=== PATIENT | male | born 1975 | race Two or more races ===

== ENCOUNTER → 2019-06-07 21:26 | Outpatient (CLI) | payer BC, SELFPAY ==
[2018-07-05 19:23] VITALS: BMI 27.1
[2019-06-07 21:37] LABS: Absolute Lymphocyte Count 2.43 X10^3/uL (0.83-4.51); Absolute Neutrophil Count 3.4 X10^3/uL (2.0-7.7); Basophil# 0.05 X10^3/uL; Basophil% 0.7 % (0-1); Eosinophil# 0.12 X10^3/uL; Eosinophils% 1.8 % (0-5); Hematocrit 41.5 % (40-54); Hemoglobin 13.6 g/dL (13.0-16.5); Lymphocyte # 2.43 X10^3/ul (4.0); Lymphocyte % 36.4 % (19-41); Mean Corp Hgb Conc 32.8 g/dL (32-36); Mean Corpuscular Hgb 25.6 pg (27.0-32.0); Mean Platelet Vol. 9.2 fl (6.2-12.0); Monocyte# 0.66 X10^3/uL; Monocyte% 9.9 % (0-10); NRBC Flagged by Analyzer 0 % (0-5); Neutrophil # 3.39 X10^3/uL (2.7-7.7); Neutrophil % 50.9 % (47-70); Platelet Count 317 K/mm3 (150-450); RBC Distribution Width CV 13.1 % (11.6-14.6); RBC Distribution Width SD 36.5 fl (35.1-43.9); Red Blood Count 5.32 M/mm3 (4.6-6.2); White Blood Count 6.7 K/mm3 (4.4-11.0)
[2019-06-07 21:49] LABS: ALB/GLOB Ratio 0.9 RATIO (0.9-2.4); AST(SGOT) 23 U/L (15-37); Alanine Aminotransfer ALT/SGPT 41 U/L (16-61); Alkaline Phosphatase 73 U/L (45-117); Anion Gap 6 (5-15); BUN 16 mg/dL (7-18); BUN/Creat Ratio 19.5 RATIO (10-20); Calcium,Total 8.8 mg/dL (8.5-10.1); Chloride 103 mmol/L (98-107); Cholesterol 247 mg/dL (200); Creatinine, Serum 0.82 mg/dL (0.70-1.30); EST Glomerular Filtration Rate 107 mL/min (>60); Est Glom Filt Rate - Afr Amer 130 mL/min (>60); Globulin 4.3 g/dL (2.2-4.2); Glucose 85 mg/dL (74-106); High Density Lipoprotein 51 mg/dL; Potassium 3.8 mmol/L (3.5-5.1); Protein, Total 8.3 g/dL (6.4-8.2); Sodium Level 139 mmol/L (136-145); Triglycerides 220 mg/dL; Very Low Density Lipoprotein 44 mg/dL (5-40)
== END ==
PROVIDERS: Referring Provider Nurse Practitioner; Visit Provider Nurse Practitioner
DX: Z00.00 Encounter for general adult medical examination without abnormal findings (principal)
CPT/HCPCS: 80053; 80061; 85025

== ENCOUNTER → 2023-09-27 | Outpatient (CLI) | payer BC, SELFPAY ==
[2023-09-27 22:04] LABS: Absolute Lymphocyte Count 2.69 X10^3/uL (0.83-4.51); Absolute Neutrophil Count 4.1 X10^3/uL (2.0-7.7); Basophil# 0.05 X10^3/uL; Basophil% 0.7 % (0-1); Eosinophil# 0.06 X10^3/uL; Eosinophils% 0.8 % (0-5); Hematocrit 43.5 % (40-54); Hemoglobin 13.8 g/dL (13.0-16.5); Lymphocyte # 2.69 X10^3/ul (0.83-4.51); Lymphocyte % 35.2 % (19-41); Mean Corp Hgb Conc 31.7 g/dL (32-36); Mean Corpuscular Hgb 24.9 pg (27.0-32.0); Mean Corpuscular Volume 78.5 fL (80-94); Mean Platelet Vol. 9.4 fl (6.2-12.0); Monocyte# 0.75 X10^3/uL; Monocyte% 9.8 % (0-10); NRBC Flagged by Analyzer 0 % (0-5); Neutrophil # 4.07 X10^3/uL (2.7-7.7); Neutrophil % 53.1 % (47-70); Platelet Count 317 K/mm3 (150-450); RBC Distribution Width CV 13.3 % (11.6-14.6); RBC Distribution Width SD 38.1 fl (35.1-43.9); Red Blood Count 5.54 M/mm3 (4.6-6.2); White Blood Count 7.7 K/mm3 (4.4-11.0)
[2023-09-27 22:19] LABS: ALB/GLOB Ratio 0.9 RATIO (0.9-2.4); AST(SGOT) 26 U/L (15-37); Alanine Aminotransfer ALT/SGPT 41 U/L (16-61); Albumin, Serum 3.8 g/dL (3.2-5.0); Alkaline Phosphatase 84 U/L (45-117); Anion Gap 6 (5-15); BUN 25 mg/dL (7-18); BUN/Creat Ratio 22.9 RATIO (10-20); Calcium,Total 8.7 mg/dL (8.5-10.1); Chloride 107 mmol/L (98-107); Cholesterol 259 mg/dL (200); Creatinine, Serum 1.09 mg/dL (0.70-1.30); EST Glomerular Filtration Rate 76 mL/min (>60); Est Glom Filt Rate - Afr Amer 92 mL/min (>60); Globulin 4.4 g/dL (2.2-4.2); Glucose 106 mg/dL (74-106); High Density Lipoprotein 53 mg/dL; PSA,Total - Annual Screen 0.71 ng/mL (0.00-4.00); Potassium 3.5 mmol/L (3.5-5.1); Protein, Total 8.2 g/dL (6.4-8.2); Sodium Level 140 mmol/L (136-145); Triglycerides 289 mg/dL; Very Low Density Lipoprotein 58 mg/dL (5-40)
== END | disposition home or self-care (01) ==
PROVIDERS: PCP Nurse Practitioner; Visit Provider Nurse Practitioner
DX: Z00.00 Encounter for general adult medical examination without abnormal findings (principal)
CPT/HCPCS: 80053; 80061; 83036; 84153; 85025; G0103

== ENCOUNTER → 2024-11-26 | Outpatient (CLI) | payer BC, SELFPAY ==
[2024-11-26 22:18] LABS: Absolute Lymphocyte Count 2.79 X10^3/uL (0.83-4.51); Basophil# 0.06 X10^3/uL; Basophil% 0.7 % (0-1); Eosinophil# 0.08 X10^3/uL; Eosinophils% 0.9 % (0-5); Hematocrit 41.4 % (40-54); Hemoglobin 13.7 g/dL (13.0-16.5); Lymphocyte # 2.79 X10^3/ul (0.83-4.51); Mean Corp Hgb Conc 33.1 g/dL (32-36); Mean Corpuscular Volume 75.5 fL (80-94); Mean Platelet Vol. 9.8 fl (6.2-12.0); Monocyte# 0.76 X10^3/uL; Monocyte% 8.7 % (0-10); NRBC Flagged by Analyzer 0 % (0-5); Neutrophil # 5.01 X10^3/uL (2.7-7.7); Neutrophil % 57.4 % (47-70); Platelet Count 331 K/mm3 (150-450); RBC Distribution Width CV 13.8 % (11.6-14.6); RBC Distribution Width SD 37.2 fl (35.1-43.9); Red Blood Count 5.48 M/mm3 (4.6-6.2); White Blood Count 8.7 K/mm3 (4.4-11.0)
[2024-11-26 22:50] LABS: ALB/GLOB Ratio 1.1 RATIO (0.9-2.4); AST(SGOT) 31 U/L (<=37); Alanine Aminotransfer ALT/SGPT 28 U/L (<=46); Albumin, Serum 4.6 g/dL (3.5-5.0); Alkaline Phosphatase 75 U/L (40-129); Anion Gap 11 (5-15); BUN 18 mg/dL (4-19); Calcium,Total 9.2 mg/dL (7.6-11.0); Carbon Dioxide 24.3 mmol/L (21.0-32.0); Chloride 99 mmol/L (98-108); Cholesterol 268 mg/dL (<=200); Creatinine, Serum 0.95 mg/dL (0.70-1.20); EST Glomerular Filtration Rate 97 (>60); Glucose 87 mg/dL (70-99); High Density Lipoprotein 48 mg/dL; Low Density Lipoprotein Calc. 191 mg/dL; Potassium 3.8 mmol/L (3.3-5.1); Protein, Total 8.6 g/dL (5.9-8.4); Sodium Level 134 mmol/L (133-145); Total Bilirubin 0.63 mg/dL (0.00-1.30); Triglycerides 145 mg/dL; Very Low Density Lipoprotein 29 mg/dL (5-40); cholesterol:hdl ratio screen 5.55
== END | disposition home or self-care (01) ==
PROVIDERS: PCP Nurse Practitioner; Referring Provider Nurse Practitioner; Visit Provider Nurse Practitioner
DX: Z00.00 Encounter for general adult medical examination without abnormal findings (principal)
CPT/HCPCS: 80053; 80061; 84153; 85025; G0103

== ENCOUNTER → 2025-06-24 | Outpatient (CLI) | payer BC, SELFPAY ==
--- OUTSIDE RECORDS SUMMARY | 2025-06-24 21:44 | XMS RPT_ITS | CCD ---
Author Organization [facility] Care Team Providers Care Manager Eligibility Name Role Phone Marvin GRINDER NEEDLE TIP, Roberta Referring Unavailable Marvin GRINDER NEEDLE TIP, Roberta Attending Unavailable Marvin GRINDER NEEDLE TIP, Roberta Primary Care Unavailable Medications Current Medications Medication Drug Class(es) Dates Sig (Normalized) Sig (Original) atorvastatin 20 mg oral tablet (1 source) HMG-CoA Reductase Inhibitor Start: 09-29-2023 take 20 mg by mouth once daily Atorvastatin Active 20 MG PO DAILY September 29, 2023 12:00am Completed/Discontinued Medications Medication Drug Class(es) Dates Sig (Normalized) Sig (Original) betamethasone 0.5 mg/ml topical cream (1 source) Corticosteroid Start: 05-29-2020 End: 09-27-2023 Betamethasone Dipropionate Discontinued 1 APPLIC TOPICAL TWICE A DAY May 28, 2020 11:00pm September 27, 2023 6:28pm triamcinolone acetonide 5 mg/ml topical cream (1 source) Corticosteroid Start: 07-05-2018 End: 05-29-2020 Triamcinolone Acetonide Discontinued 1 APPLIC TOPICAL THREE TIMES A DAY July 05, 2018 12:00am May 29, 2020 6:32pm Problems Problem Classification Problem Date Documented Da te Episodic/Chronic Unclassified (1 source) fx L forearm 02-24-2022 Results Test Name Value Interpretation Reference Range Facility PSA,Total - Annual Screenon 11-27-2024 PSA,TOT SCREEN 0.70 ng/mL Normal 0.02-4.00 [facility] Comment on above: Result Comment: This test was performed using the [employer] tPSA method. Measured values of a patient??sample can vary depending on the testing procedure used. PSA values determined on patient samples by different testing procedures cannot be used interchangeably. If there is a change in PSA assays while monitoring therapy, sequential testing should be performed to confirm baseline values. Performed By: #### L 500.4050, L500.4100, L100.0100, L501.9910 #### [facility] [address] [place], [address] CBC W/Diff, Automatedon 04-2 Absolute Lymph 2.79 X10 3/uL Normal 0.83-4.51 [facility] Comment on above: Performed By: #### L 500.4050, L500.4100, L100.0100, L501.9910 #### [facility] [address] [place], [address] Absolute Neut 5.0 X10 3/uL Normal 2.0-7.7 [facility] Comment on above: Performed By: #### L 500.4050, L500.4100, L100.0100, L501.9910 #### [facility] [address] [place], [address] Basophils/100 WBC (Bld) 0.7 % Normal 0-1 [facility] Comment on above: Performed By: #### L 500.4050, L500.4100, L100.0100, L501.9910 #### [facility] [address] [place], [address] Eosinophils/100 WBC (Bld) 0.9 % Normal 0-5 [facility] Comment on above: Performed By: #### L 500.4050, L500.4100, L100.0100, L501.9910 #### [facility] [address] [place], [address] Erythrocyte distribution width (RBC) [Ratio] 13.8 % Normal 11.6-14.6 [facility] Comment on above: Performed By: #### L 500.4050, L500.4100, L100.0100, L501.9910 #### [facility] [address] [place], [address] Hematocrit (Bld) [Volume fraction] 41.4 % Normal 40-54 [facility] Comment on above: Performed By: #### L 500.4050, L500.4100, L100.0100, L501.9910 #### [facility] [address] [place], [address] Hemoglobin (Bld) [Mass/Vol] 13.7 g/dL Normal 13.0-16.5 [facility] Comment on above: Performed By: #### L 500.4050, L500.4100, L100.0100, L501.9910 #### [facility] [address] [place], [address] IG% 0.300 Normal 0.0-0.9 [facility] Comment on above: Result Comment: IG% - Immature Granulocytes (promyelocytes, myelocytes and metamyelocytes) > 1% indicates that a LEFT SHIFT is Present. Performed By: #### L 500.4050, L500.4100, L100.0100, L501.9910 #### [facility] [address] [place], [address] Lymphocytes/100 WBC (Bld) 32.0 % Normal 19-41 [facility] Comment on above: Performed By: #### L 500.4050, L500.4100, L100.0100, L501.9910 #### [facility] [address] [place], [address] MCH (RBC) [Entitic mass] 25.0 pg Low 27.0-32.0 [facility] Comment on above: Performed By: #### L 500.4050, L500.4100, L100.0100, L501.9910 #### [facility] [address] [place], [address] MCHC (RBC) [Mass/Vol] 33.1 g/dL Normal 32-36 [facility] Comment on above: Performed By: #### L 500.4050, L500.4100, L100.0100, L501.9910 #### [facility] [address] [place], [address] MCV (RBC) [Entitic vol] 75.5 fL Low 80-94 [facility] Comment on above: Performed By: #### L 500.4050, L500.4100, L100.0100, L501.9910 #### [facility] [address] [place], [address] Monocytes/100 WBC (Bld) 8.7 % Normal 0-10 [facility] Comment on above: Performed By: #### L 500.4050, L500.4100, L100.0100, L501.9910 #### [facility] [address] [place], [address] Neutrophils/100 WBC (Bld) 57.4 % Normal 47-70 [facility] Comment on above: Performed By: #### L 500.4050, L500.4100, L100.0100, L501.9910 #### [facility] [address] [place], [address] Nucleated RBC (Bld) [#/Vol] 0 10*3/uL Normal 0-5 [facility] Comment on above: Performed By: #### L 500.4050, L500.4100, L100.0100, L501.9910 #### [facility] [address] [place], [address] Platelet mean volume (Bld) [Entitic vol] 9.8 fL Normal 6.2-12.0 [facility] Comment on above: Performed By: #### L 500.4050, L500.4100, L100.0100, L501.9910 #### [facility] [address] [place], [address] Platelets (Bld) [#/Vol] 331 10*3/uL Normal 150-450 [facility] Comment on above: Performed By: #### L 500.4050, L500.4100, L100.0100, L501.9910 #### [facility] [address] [place], [address] RBC (Bld) [#/Vol] 5.48 10*6/uL Normal 4.6-6.2 [facility] Comment on above: Performed By: #### L 500.4050, L500.4100, L100.0100, L501.9910 #### [facility] [address] [place], [address] RDW SD 37.2 fl Normal 35.1-43.9 [facility] Comment on above: Performed By: #### L 500.4050, L500.4100, L100.0100, L501.9910 #### [facility] [address] [place], [address] WBC (Bld) [#/Vol] 8.7 10*3/uL Normal 4.4-11.0 [facility] Comment on above: Performed By: #### L 500.4050, L500.4100, L100.0100, L501.9910 #### [facility] [address] [place], [address] Comprehensive Metabolic Prof [facility] 11-26-2024 Albumin [Mass/Vol] 4.6 g/dL Normal 3.5-5.0 [facility] Comment on above: Performed By: #### L 500.4050, L500.4100, L100.0100, L501.9910 #### [facility] [address] [place], [address] Albumin/Globulin [Mass ratio] 1.1 {ratio} Normal 0.9-2.4 [facility] Comment on above: Performed By: #### L 500.4050, L500.4100, L100.0100, L501.9910 #### [facility] [address] [place], [address] ALK PHOS 75 U/L Normal 40-129 [facility] Comment on above: Performed By: #### L 500.4050, L500.4100, L100.0100, L501.9910 #### [facility] [address] [place], [address] ALT [Catalytic activity/Vol] 28 U/L Normal <=46 [facility] Comment on above: Performed By: #### L 500.4050, L500.4100, L100.0100, L501.9910 #### [facility] [address] [place], [address] AST [Catalytic activity/Vol] 31 U/L Normal <=37 [facility] Comment on above: Performed By: #### L 500.4050, L500.4100, L100.0100, L501.9910 #### [facility] [address] [place], [address] Bilirubin [Mass/Vol] 0.63 mg/dL Normal 0.00-1.30 [facility] Comment on above: Performed By: #### L 500.4050, L500.4100, L100.0100, L501.9910 #### [facility] [address] [place], [address] BUN/CRE 19.0 RATIO Normal 10-20 [facility] Comment on above: Performed By: #### L 500.4050, L500.4100, L100.0100, L501.9910 #### [facility] [address] [place], [address] Calcium [Mass/Vol] 9.2 mg/dL Normal 7.6-11.0 [facility] Comment on above: Performed By: #### L 500.4050, L500.4100, L100.0100, L501.9910 #### [facility] [address] [place], [address] Chloride [Moles/Vol] 99 mmol/L Normal 98-108 [facility] Comment on above: Performed By: #### L 500.4050, L500.4100, L100.0100, L501.9910 #### [facility] [address] [place], [address] CO2 [Moles/Vol] 24.3 mmol/L Normal 21.0-32.0 [facility] Comment on above: Performed By: #### L 500.4050, L500.4100, L100.0100, L501.9910 #### [facility] [address] [place], [address] Creatinine [Mass/Vol] 0.95 mg/dL Normal 0.70-1.20 [facility] Comment on above: Performed By: #### L 500.4050, L500.4100, L100.0100, L501.9910 #### [facility] [address] [place], [address] GAP 11 Normal 5-15 [facility] Comment on above: Performed By: #### L 500.4050, L500.4100, L100.0100, L501.9910 #### [facility] [address] [place], [address] GFR/1.73 sq M.predicted among non-blacks MDRD (S/P/Bld) [Vol rate/Area] 97 mL/min/{1.73_m2} Normal >60 [facility] Comment on above: Result Comment: mL/m in/1.73m2 CKD-EPI Creatinine Equation (2020) Performed By: #### L 500.4050, L500.4100, L100.0100, L501.9910 #### [facility] [address] [place], [address] Globulin (S) [Mass/Vol] 4.0 g/dL Normal 2.2-4.2 [facility] Comment on above: Performed By: #### L 500.4050, L500.4100, L100.0100, L501.9910 #### [facility] [address] [place], [address] Glucose [Mass/Vol] 87 mg/dL Normal 70-99 [facility] Comment on above: Performed By: #### L 500.4050, L500.4100, L100.0100, L501.9910 #### [facility] [address] [place], [address] Potassium [Moles/Vol] 3.8 mmol/L Normal 3.3-5.1 [facility] Comment on above: Performed By: #### L 500.4050, L500.4100, L100.0100, L501.9910 #### [facility] [address] [place], [address] Sodium [Moles/Vol] 134 mmol/L Normal 133-145 [facility] Comment on above: Performed By: #### L 500.4050, L500.4100, L100.0100, L501.9910 #### [facility] [address] [place], [address] T PROT 8.6 g/dL High 5.9-8.4 [facility] Comment on above: Performed By: #### L 500.4050, L500.4100, L100.0100, L501.9910 #### [facility] [address] [place], [address] Urea nitrogen [Mass/Vol] 18 mg/dL Normal 4-19 [facility] Comment on above: Performed By: #### L 500.4050, L500.4100, L100.0100, L501.9910 #### [facility] [address] [place], [address] Lipid Profileon 11-26-2024 CHOL:HDL 5.55 Normal [facility] Comment on above: Performed By: #### L 500.4050, L500.4100, L100.0100, L501.9910 #### [facility] [address] [place], [address] Cholesterol [Mass/Vol] 268 mg/dL High <=200 [facility] Comment on above: Result Comment: Chol esterol level, Desirable <200 mg/dL Borderline high cholesterol 200-239 mg/dL High cholesterol >=240 mg/dL Recommendations of the NCEP Adult Treatment Panel for the following risk-cutoff thresholds for the [place] population. Performed By: #### L 500.4050, L500.4100, L100.0100, L501.9910 #### [facility] [address] [place], [address] Cholesterol in HDL [Mass/Vol] 48 mg/dL Normal [facility] Comment on above: Result Comment: [place] on[place] Cholesterol Education Program (NCEP) guidelines: <40 mg/dL: Low HDL-cholesterol (major risk factor for CHD) >= 60 mg/dL: High HDL-cholesterol (negative risk factor for CHD) HDL-cholesterol is affected by a number of factors, e.g. smoking, exercise, hormones, sex and age. Performed By: #### L 500.4050, L500.4100, L100.0100, L501.9910 #### [facility] [address] [place], [address] Cholesterol in LDL [Mass/Vol] 191 mg/dL Normal [facility] Comment on above: Result Comment: Bord aqpkez=617-727 mg/dL Higher Uoqk=029 mg/dL or greater Performed By: #### L 500.4050, L500.4100, L100.0100, L501.9910 #### [facility] [address] [place], [address] Cholesterol in VLDL [Mass/Vol] 29 mg/dL Normal 5-40 [facility] Comment on above: Performed By: #### L 500.4050, L500.4100, L100.0100, L501.9910 #### [facility] [address] [place], [address] Triglyceride [Mass/Vol] 145 mg/dL Normal [facility] Comment on above: Result Comment: The drugs N-Acetylcysteine and Metamizole may falsely depress this assay. Normal range: <150 mg/dL Borderline High: 150-199 mg/dL High: 200-499 mg/dL Very High: >500 mg/dL Performed By: #### L 500.4050, L500.4100, L100.0100, L501.9910 #### [facility] [address] [place], [address] Absolute lymphocyte countOrd ered By: Roberta Wong on 09-27-2023 Lymphocytes Auto (Unsp spec) [#/Vol] 2.69 10*3/uL 0.83-4.51 [facility] Automated lymphocyte count a s percentage of total leukocytesOrdered By: Roberta Wong on 09-27-2023 Lymphocytes/100 WBC Auto (Unsp spec) 35.2 % 19-41 [facility] Basophil percentageOrdered B y: Roberta Wong on 09-27-2023 Basophils/100 WBC (Bld) 0.7 % 0-1 [facility] Bilirubin [Mass/Vol] 0.50 mg/dL 0.20-1.00 [facility] Comment on above: For patients on eltr ombopag therapy, use of Dimension [place] TBIL is not recommended. Chloride [Moles/Vol] 107 mmol/L 98-107 [facility] Cholesterol [Mass/Vol] 259 mg/dL <200 [facility] Comment on above: <200 mg/dL Desirable 200-240 mg/dL Borderline >240 mg/dL High Risk Eosinophils/100 WBC (Bld) 0.8 % 0-5 [facility] Glucose [Mass/Vol] 106 mg/dL 74-106 [facility] Comment on above: Fasting Glucose resu lt from 100 to 125 mg/dL suggests IMPAIRED HOMEOSTASIS per A.D.A. criteria. Hemoglobin (Bld) [Mass/Vol] 13.8 g/dL 13.0-16.5 [facility] Monocytes/100 WBC (Bld) 9.8 % 0-10 [facility] Neutrophils (Bld) [#/Vol] 4.1 10*3/uL 2.0-7.7 [facility] Neutrophils/100 WBC (Bld) 53.1 % 47-70 [facility] Potassium [Moles/Vol] 3.5 mmol/L 3.5-5.1 [facility] Protein [Mass/Vol] 8.2 g/dL 6.4-8.2 [facility] Sodium [Moles/Vol] 140 mmol/L 136-145 [facility] Triglyceride [Mass/Vol] 289 mg/dL <199 [facility] Comment on above: The drugs N-Acetylcy steine and Metamizole may falsely depress this assay.Serum Triglycerides Reference Interval Normal <150 mg/dL Borderline high 150 - 199 mg/dL High 200 - 499 mg/dL Very High > or = 500 mg/dL WBC (Bld) [#/Vol] 7.7 10*3/uL 4.4-11.0 [facility] Determination of erythrocyte mean corpuscular volume (MCV)Ordered By: Roberta Wong on 09-27-2023 MCV (RBC) [Entitic vol] 78.5 fL 80-94 [facility] Erythrocyte distribution wid th ratioOrdered By: Roberta Wong on 09-27-2023 Erythrocyte distribution width (RBC) [Ratio] 13.3 % 11.6-14.6 [facility] Erythrocyte distribution wid th standard deviationOrdered By: Roberta Wong on 09-27-2023 Erythrocyte distribution width (RBC) [Entitic vol] 38.1 fL 35.1-43.9 [facility] Hematocrit Auto (Bld) [Volum e fraction]Ordered By: Roberta Wong on 09-27-2023 Hematocrit (Bld) [Volume fraction] 43.5 % 40-54 [facility] Immature granulocytes/100 WB C Auto (Bld)Ordered By: Roberta Wong on 09-27-2023 Immature granulocytes/100 WBC (Bld) 0.400 % 0.0-0.9 [facility] Comment on above: IG% - Immature Granu locytes (promyelocytes, myelocytes and metamyelocytes) > 1% indicates that a LEFT SHIFT is Present. Laboratory - Chemistry and C hemistry - challengeOrdered By: Roberta Wong on 09-27-2023 Albumin/Globulin [Mass ratio] 0.9 {ratio} 0.9-2.4 [facility] ALP [Catalytic activity/Vol] 84 U/L 45-117 [facility] ALT [Catalytic activity/Vol] 41 U/L 16-61 [facility] Cholesterol in HDL [Mass/Vol] 53 mg/dL >40 [facility] Comment on above: The drugs N-Acetylcy steine and Metamizole may falsely depress this assay. Reference Range HDL <40 mg/dL Low HDL Cholesterol HDL >or= 60 mg/dL High HDL Cholesterol Cholesterol in LDL [Mass/Vol] 148 mg/dL 0-130 [facility] CO2 [Moles/Vol] 27.0 mmol/L 21.0-32.0 [facility] Globulin (S) [Mass/Vol] 4.4 g/dL 2.2-4.2 [facility] Urea nitrogen/Creatinine [Mass ratio] 22.9 mg/mg 10-20 [facility] - Hematology and Cell countsOrdered By: Roberta Wong on 09-27-2023 MCH (RBC) [Entitic mass] 24.9 pg 27.0-32.0 [facility] MCHC (RBC) [Mass/Vol] 31.7 g/dL 32-36 [facility] Nucleated RBC/100 WBC (Bld) [Ratio] 0 % 0-5 [facility] Platelet mean volume (Bld) [Entitic vol] 9.4 fL 6.2-12.0 [facility] Platelets (Bld) [#/Vol] 317 10*3/uL 150-450 [facility] No Panel InformationOrdered By: Roberta Wong on 09-27-2023 Estimated GFR (MDRD) Amer 92 mL/min >60 [facility] Comment on above: GFR Calc Estimated GFR (MDRD) Non-Af Amer 76 mL/min >60 [facility] Comment on above: Non- GFR Calc Prostate Specific Antigen Screen 0.71 ng/mL 0.00-4.00 [facility] Comment on above: This test was perfor med using the TPSA assay method for the[employer] chemistry system. Values obtained with differentassay methods cannot be used interchangably.When changing PSA assays in the course of monitoring apatient, additional sequential testing should be carriedout to confirm baseline values. VLDL Cholesterol 58 mg/dL 5-40 [facility] RBC Auto (Bld) [#/Vol]Ordere d By: Roberta Wong on 09-27-2023 RBC (Bld) [#/Vol] 5.54 10*6/uL 4.6-6.2 [facility] Serum or plasma calcium kianna urement (mass/volume)Ordered By: Roberta Wong on 09-27-2023 Calcium [Mass/Vol] 8.7 mg/dL 8.5-10.1 [facility] Serum or plasma creatinine m easurement (mass/volume)Ordered By: Roberta Wong on 09-27-2023 Creatinine [Mass/Vol] 1.09 mg/dL 0.70-1.30 [facility] Comment on above: The validity of the calculated GFR & GFRAA in patients over 70 years has not been determined. Clinical correlation is essential. Serum or plasma urea nitroge n measurement (mass/volume)Ordered By: Roberta Wong on 09-27-2023 Urea nitrogen [Mass/Vol] 25 mg/dL 7-18 [facility] Thin prep Papanicolaou smear with manual screeningOrdered By: Roberta Wong on 09-27-2023 Thin prep Papanicolaou smear with manual screening 3.8 g/dL 3.2-5.0 [facility] Thin prep Papanicolaou smear with manual screening 26 U/L 15-37 [facility] Thin prep Papanicolaou smear with manual screening 6 5-15 [facility] Whole blood hemoglobin A1c/t otal hemoglobin ratio (mass fraction)Ordered By: Roberta Wong on 09-27-2023 HbA1c (Bld) [Mass fraction] 6.0 % 3.8-5.6 [facility] Comment on above: Normal < 5.7 % Predi abetic 5.7 - 6.4 % Diabetic >or= 6.5 % Please note range changes. Vital Signs Date Time Vital Sign Value Performing Clinician Ester espinal 09-27-2023 18:19-0500 Body height 162.56 cm [facility] 09-27-2023 18:19-0500 Body mass index (BMI) [Ratio] 26.9 kg/m2 [facility] 09-27-2023 18:19-050 Body weight 71.21 kg [facility] 09-27-2023 18:19-0500 Diastolic blood pressure 70 mm[Hg] [facility] 09-27-2023 18:19-0500 Systolic blood pressure 120 mm[Hg] [facility] Encounters Encounter Date Encounter Type Care Provider Facility Start: 12-02-2024 Encounter for genera l adult medical examination without abnormal findings Roberta Wong GRINDER NEEDLE TIP [facility] Start: 11-26-2024 End: 11-26-2024 ambulatory Roberta Wong GRINDER NEEDLE TIP Facility:[facility] Start: 09-27-2023 End: 09-27-2023 ambulatory [facility] Work Phone: Start: 09-27-2023 End: 09-27-2023 Patient encounter procedure [facility], Specimen Work Phone: Start: 07-05-2018 Patient encounter status [facility] Payers Date Payer Category Payer Self-pay [id number] 2024 Unknown [id number] Unknown OB COMP MANAGEMENT [id number] Unknown [id number] Social History Date Type Detail Facility Start: 05-29-2020 Tobacco smoking stat us NHIS Unknown if ever smoked [facility] Start: 1975 Sex Assigned At Male [facility] Evaluation note Note Date & Type Note Facility Evaluation note Diagnosis Onset Date Wellness examination acute [facility] Work Phone: Chief Complaint and Reason for Visit Chief Complaint Annual wellness exam labs PE Reason for Visit Wellness examination Summary Purpose Family History No Family History Records Found Advance Directives No Advanced Directives Records Found Additional Source Comments Care Teams (unrecognized sec tion and content) Team Status: Active Member Role Status Dates Roberta Wong GRINDER NEEDLE TIP, GRINDER NEEDLE TIP-C Primary Care Provider Active Team Status: Inactive Member Role Status Dates Roberta Wong GR[employer] NEEDLE TIP, GRINDER NEEDLE TIP-C Attending Provider Active Team Status: Inactive Member Role Status Dates Roberta Wong NP, GR[employer]ER NEEDLE TIP-C Primary Care Provider, Attend ing Provider Active Goals (unrecognized section and content) Goals may be documented in a n alternate section (unrecognized sect ion and content) No Status Records Found INFORMATION SOURCE (unrecogn ized section and content) DATE CREATED AUTHOR 12/05/2024 [facility] FOR RECORDS PERTAINING TO PATIENTS WHO ARE OR HAVE BEEN ENROLLED IN A CHEMICAL DEPENDENCY/SUBSTANCEABUSE PROGRAM, SOME INFORMATION MAY BE OMITTED. This clinical summary was aggregated from multiple sources. Caution should be exercised in using it in the provision of clinical care. This summary normalizes information from multiple sources, and as a consequence, information in this document may materially change the coding, format and clinical context of patient data. In addition, data may be omitted in some cases. CLINICAL DECISIONS SHOULD BE BASED ON THE PRIMARY CLINICAL RECORDS. [employer] provides no warranty or guarantee of the accuracy or completeness of information in this document.
[2025-06-24 21:54] LABS: Hematocrit 41.5 % (40-54); Hemoglobin 13.7 g/dL (13.0-16.5); Immature Granulocytes Count 0.030 X10^3/uL (0.0-0.0); Mean Corp Hgb Conc 33.0 g/dL (32-36); Mean Corpuscular Volume 75.7 fL (80-94); Mean Platelet Vol. 9.7 fl (6.2-12.0); NRBC Flagged by Analyzer 0 % (0-5); Platelet Count 322 K/mm3 (150-450); RBC Distribution Width CV 13.2 % (11.6-14.6); RBC Distribution Width SD 35.8 fl (35.1-43.9); Red Blood Count 5.48 M/mm3 (4.6-6.2); White Blood Count 6.5 K/mm3 (4.4-11.0)
[2025-06-24 22:49] LABS: AST(SGOT) 35 U/L (<=37); Alanine Aminotransfer ALT/SGPT 41 U/L (<=46); Albumin, Serum 4.5 g/dL (3.5-5.0); Alkaline Phosphatase 80 U/L (40-129); Anion Gap 13 (5-15); BUN 23 mg/dL (4-19); BUN/Creat Ratio 19.2 RATIO (10-20); Calcium,Total 9.3 mg/dL (7.6-11.0); Carbon Dioxide 24.5 mmol/L (21.0-32.0); Chloride 99 mmol/L (98-108); Cholesterol 299 mg/dL (<=200); Globulin 3.8 g/dL (2.2-4.2); Glucose 95 mg/dL (70-99); Low Density Lipoprotein Calc. 204 mg/dL; Potassium 4.3 mmol/L (3.3-5.1); Triglycerides 221 mg/dL; Very Low Density Lipoprotein 44 mg/dL (5-40); cholesterol:hdl ratio screen 5.79
== END | disposition home or self-care (01) ==
PROVIDERS: PCP Nurse Practitioner; Referring Provider Nurse Practitioner; Visit Provider Nurse Practitioner
DX: Z00.00 Encounter for general adult medical examination without abnormal findings (principal)
CPT/HCPCS: 80053; 80061; 83036; 85025